=== PATIENT | male | born 1955 | race African-American/Black ===

== ENCOUNTER 2016-10-15 02:29 | Emergency (ER) | payer OTHER, SELFPAY ==
[~2016-10-15] VITALS: Ht 180.3 cm; Wt 118.0 kg
[~2016-10-15 02:29] MED LIST: ASPI325T PO; FERR325T3 PO; MOTR200T44 PO; OXYC1TAB23 PO; PRIL20CA PO; SENO8.6T10 PO; TYLE500T78 PO; VITA500C24 PO
[2016-10-15 02:36] VITALS: BP 164/82
[2016-10-15] MEDS ORDERED: TETRACAINE 0.5% OPHTH SOLN 4ML OS ONE (03:30)
[2016-10-15] MEDS ORDERED: FLUORESCEIN OPHTH 1 MG STRIP OS ONE (04:15)
== END 2016-10-15 04:41 | disposition home or self-care (01) ==
LOC: M ED 02:29
DX: H10.212 Acute toxic conjunctivitis, left eye (principal); T65.91XA Toxic effect of unspecified substance, accidental (unintentional), initial encounter; Y92.9 Unspecified place or not applicable; Y93.9 Activity, unspecified; Y99.0 Civilian activity done for income or pay; F17.200 Nicotine dependence, unspecified, uncomplicated

== ENCOUNTER 2016-12-01 14:08 | Emergency (ER) | payer OTHER, SELFPAY ==
[~2016-12-01] VITALS: Ht 182.9 cm; Wt 120.4 kg
[2016-12-01 17:04] VITALS: BP 157/84
== END 2016-12-01 17:06 | disposition home or self-care (01) ==
LOC: M ED 14:08
DX: N52.9 Male erectile dysfunction, unspecified (principal); F17.200 Nicotine dependence, unspecified, uncomplicated

== ENCOUNTER 2018-01-20 02:08 | Emergency (ER) | payer OTHER, SELFPAY ==
[2018-01-20] MEDS ORDERED: diphenhydrAMINE 50 MG CAP PO (03:15)
== END 2018-01-20 03:29 | disposition home or self-care (01) ==
LOC: M ED 02:08
DX: S92.302A Fracture of unspecified metatarsal bone(s), left foot, initial encounter for closed fracture (principal); Y92.89 Other specified places as the place of occurrence of the external cause; W20.8XXA Other cause of strike by thrown, projected or falling object, initial encounter
CPT/HCPCS: 73630

== ENCOUNTER 2019-02-17 20:26 | Emergency (ER) | payer OTHER ==
[~2019-02-17] VITALS: Ht 180.3 cm; Wt 100.0 kg
[2019-02-17 21:15] LABS: BASO % 0.5 % (0.0-1.0); EOS # 0.2 10^3/uL (0.0-0.5); HEMATOCRIT 46.5 % (42.0-52.0); HEMOGLOBIN 14.1 g/dl (13.5-17.5); LYMPH # 2.3 10^3/uL (1.5-5.0); LYMPH % 37.8 % (24.0-44.0); MEAN CORPUSCULAR HEMOGLOBIN 25.4 pg (27.0-33.0); MEAN CORPUSCULAR HGB CONC 30.3 g/dl (32.0-36.5); MEAN CORPUSCULAR VOLUME 83.8 fl (80.0-96.0); MONO # 0.4 10^3/uL (0.0-0.8); MONO % 6.8 % (0.0-5.0); NEUTROPHILS # 3.1 10^3/uL (1.5-8.5); NEUTROPHILS % 50.7 % (36.0-66.0); PLATELET COUNT, AUTOMATED 229 10^3/uL (150-450); RED BLOOD COUNT 5.55 10^6/uL (4.30-6.10)
[2019-02-17 21:38] LABS: INR 1.02; PARTIAL THROMBOPLASTIN TIME 24.1 SECONDS (25.0-38.4); PROTHROMBIN TIME 13.1 SECONDS (11.8-14.0)
[2019-02-17 22:02] LABS: ALBUMIN 3.3 GM/DL (3.2-5.2); ALT/SGPT 36 U/L (12-78); BILIRUBIN,DIRECT < 0.1 MG/DL (0.0-0.2); BILIRUBIN,TOTAL 0.4 MG/DL (0.2-1.0); BLOOD UREA NITROGEN 15 MG/DL (7-18); CARBON DIOXIDE LEVEL 29 MEQ/L (21-32); CHLORIDE LEVEL 110 MEQ/L (98-107); CREATININE FOR GFR 1.28 MG/DL (0.70-1.30); GLOMERULAR FILTRATION RATE > 60.0 (>49); GLUCOSE, FASTING 98 MG/DL (70-100); POTASSIUM SERUM 4.1 MEQ/L (3.5-5.1); SODIUM LEVEL 145 MEQ/L (136-145); TOTAL PROTEIN 6.6 GM/DL (6.4-8.2)
[2019-02-18] MEDS ORDERED: ISOVUE-370 76% 100ML VIAL (Q9967) As Ordered ONE (00:14)
[2019-02-18] MEDS: ONDANSETRON 4MG/2ML VIAL (J2405) IV ONE ×2 (00:46→00:47)
[2019-02-18 02:05] VITALS: BP 180/88
--- NOTE | 2019-02-18 09:25 | REP ---
Soft-tissue ultrasound left forearm: History: Swelling of the left forearm. Evaluate for vascular injury. The patient reports no known injury or pain and states a lump appear approximately 1 hour prior. Preliminary report is provided at the time of exam by [facility]. Repeat dictation. Findings: There is a homogeneous slightly hyperechoic solid oval-shaped mass within the soft tissues of the left forearm measuring 5.6 x 9.0 x 4.5 cm. There is some internal blood flow. Nonspecific sonographic findings for soft tissue mass. Impression: Intramuscular soft tissue mass. No abnormal fluid collection. The lesion is homogeneous consistent with but not specific for lipoma. Electronically Signed by Boris Cooley MD 02/18/2019 09:16 A
--- NOTE | 2019-02-18 09:25 | REP ---
REPEAT DICTATION CT LEFT FOREARM AND UPPER ARM WITH IV CONTRAST: HISTORY: Further evaluation of forearm mass. Preliminary report is provided at the time of exam by [facility]. CT CONTRAST DOSE: 100 mL of intravenous Isovue 370. Comparison is made with sonographic images from this date. FINDINGS: There is a homogeneous fat density intramuscular mass in the left forearm along its ventral and lateral aspect overlying the radius. This is compatible with a benign lipoma. There are no abnormal soft tissue components or abnormal contrast enhancement changes. The lesion measures 14.0 cm in greatest craniocaudal span x 7.5 cm dorsal to ventral x 3.8 cm medial to lateral. No other soft tissue mass is seen. There is no evidence of denervation myopathy in the distal forearm. No acute bony abnormality is appreciated. 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 Electronically Signed by Boris Cooley MD 02/18/2019 10:37 A
== END 2019-02-18 02:07 | disposition home or self-care (01) ==
LOC: M ED 20:26
DX: S50.12XA Contusion of left forearm, initial encounter (principal); R22.32 Localized swelling, mass and lump, left upper limb; R03.0 Elevated blood-pressure reading, without diagnosis of hypertension; X58.XXXA Exposure to other specified factors, initial encounter; Y92.9 Unspecified place or not applicable; Y93.9 Activity, unspecified; Y99.9 Unspecified external cause status
CPT/HCPCS: 73206; 76882; 80048; 80076; 85025; 85610; 85730; 99284; Q9967

== ENCOUNTER 2019-09-11 19:48 | Emergency (ER) | payer SELFPAY | END 2019-09-11 22:35 | disposition home or self-care (01) | LOC: M ED 19:48 | DX: H26.9 Unspecified cataract (principal); F17.200 Nicotine dependence, unspecified, uncomplicated ==

== ENCOUNTER 2019-12-03 13:54 | Emergency (ER) | payer OTHER, SELFPAY ==
[~2019-12-03] VITALS: Ht 180.3 cm; Wt 117.8 kg
[2019-12-03] MEDS ORDERED: TETRACAINE 0.5% OPHTH SOLN 4ML OD ONE (14:45)
[2019-12-03] MEDS ORDERED: FLUORESCEIN OPHTH 1 MG STRIP OD ONE (14:45)
[2019-12-03] MEDS ORDERED: POLYSOL OP (15:18)
[2019-12-03] MEDS ORDERED: POLYTRIM OPTH DROPS 10ML OD ONE (15:30)
[2019-12-03 16:02] VITALS: BP 169/79
== END 2019-12-03 16:04 | disposition home or self-care (01) ==
LOC: M ED 13:54
DX: H10.31 Unspecified acute conjunctivitis, right eye (principal)

== ENCOUNTER 2022-01-10 12:40 | Emergency (ER) | payer OTHER ==
[~2022-01-10] VITALS: Ht 180.3 cm; Wt 113.6 kg
[~2022-01-10 12:40] MED LIST changes: +POLYSOL OP
[2022-01-10] MEDS ORDERED: ONDANSETRON 4MG 2ML VIAL IV ONE (13:00)
[2022-01-10 13:43] LABS: HEMOGLOBIN 13.6 g/dl (13.5-17.5); MEAN CORPUSCULAR HEMOGLOBIN 24.3 pg (27.0-33.0); MEAN CORPUSCULAR HGB CONC 30.2 g/dl (32.0-36.5); MEAN CORPUSCULAR VOLUME 80.4 fl (80.0-96.0); PLATELET COUNT, AUTOMATED 261 10^3/uL (150-450); WHITE BLOOD COUNT 5.6 10^3/uL (4.0-10.0)
[2022-01-10 13:58] LABS: ALBUMIN 3.5 G/DL (3.2-5.2); ALT/SGPT 41 U/L (7.0-40); BILIRUBIN,DIRECT 0.1 MG/DL (<0.4); BILIRUBIN,TOTAL 0.3 MG/DL (0.3-1.2); BLOOD UREA NITROGEN 15 MG/DL (9-23); CALCIUM LEVEL 8.5 MG/DL (8.3-10.6); CARBON DIOXIDE LEVEL 27 MMOL/L (20-31); CHLORIDE LEVEL 108 MMOL/L (98-107); CREATININE FOR GFR 1.07 MG/DL (0.70-1.30); GLOMERULAR FILTRATION RATE > 60.0 (>49); GLUCOSE, FASTING 93 MG/DL (74-106); LIPASE 26 U/L (12-53); POTASSIUM SERUM 3.9 MMOL/L (3.5-5.1); SODIUM LEVEL 145 MMOL/L (136-145); TOTAL PROTEIN 6.4 G/DL (5.7-8.2)
[2022-01-10 13:59] LABS: ATYPICAL LYMPH 13 % (0-5); EOSINOPHILS 6 % (0-3); LYMPHOCYTES 26 % (16-44); MONOCYTES 8 % (0-5); NEUTROPHILS 47 % (28-66); PLATELET ESTIMATE NORMAL (NORMAL)
[2022-01-10] MEDS ORDERED: ISOVUE-370 76% 100ML VIAL As Ordered ONE (14:08)
[2022-01-10] MEDS ORDERED: ONDA4TAB6 PO (15:14)
[2022-01-10 15:40] VITALS: BP 168/89
== END 2022-01-10 15:41 | disposition home or self-care (01) ==
LOC: M ED 12:40
DX: R19.00 Intra-abdominal and pelvic swelling, mass and lump, unspecified site (principal); A08.11 Acute gastroenteropathy due to Norwalk agent; I45.10 Unspecified right bundle-branch block; F17.200 Nicotine dependence, unspecified, uncomplicated; Z79.899 Other long term (current) drug therapy

== ENCOUNTER → 2022-01-13 | Outpatient (CLI) | payer OTHER ==
[~2022-01-13] MED LIST changes: +ONDA4TAB6 PO
[2022-01-13 19:29] LABS: CHOLESTEROL RISK RATIO 5.94 (<5); HDL CHOLESTEROL 29.6 MG/DL (>40); LDL CHOLESTEROL 125.8 MG/DL (<100)
[2022-01-13 20:05] LABS: HEPATITIS C VIRUS ABY INDEX 0.2 INDEX (<0.8)
[2022-01-13 22:57] LABS: HEMOGLOBIN A1c 5.6 % (4.0-6.0)
== END ==
LOC: M PLALAB 16:03
PROVIDERS: ATTEND Family Medicine
DX: E66.01 Morbid (severe) obesity due to excess calories (principal)

== ENCOUNTER → 2022-01-21 | Outpatient (CLI) | payer OTHER | LOC: M RAD 12:05 | PROVIDERS: ATTEND Family Medicine | DX: R22.32 Localized swelling, mass and lump, left upper limb (principal) ==

== ENCOUNTER → 2022-07-05 | Outpatient (CLI) | payer OTHER ==
[2022-07-05 11:23] LABS: BLOOD UREA NITROGEN 15 MG/DL (9-23); CALCIUM LEVEL 8.2 MG/DL (8.3-10.6); CARBON DIOXIDE LEVEL 27 MMOL/L (20-31); CHLORIDE LEVEL 109 MMOL/L (98-107); CREATININE FOR GFR 1.03 MG/DL (0.70-1.30); GLOMERULAR FILTRATION RATE > 60.0 (>49); GLUCOSE, FASTING 96 MG/DL (74-106); POTASSIUM SERUM 4.2 MMOL/L (3.5-5.1); SODIUM LEVEL 142 MMOL/L (136-145)
== END ==
LOC: M PLALAB 07:32
PROVIDERS: ATTEND Family Medicine
DX: I10 Essential (primary) hypertension (principal)

== ENCOUNTER 2022-08-06 07:25 | Emergency (ER) | payer OTHER ==
[~2022-08-06] VITALS: Ht 180.3 cm; Wt 123.2 kg
[2022-08-06] MEDS ORDERED: ONDANSETRON 4MG 2ML VIAL IV ONE (08:00)
[2022-08-06] MEDS ORDERED: MORPHINE 4 MG/ML 1ML VIAL IV ONE (08:00)
[2022-08-06 08:25] LABS: BASO % 0.5 % (0.0-1.0); EOS # 0.1 10^3/uL (0.0-0.5); EOS % 1.8 % (0.0-3.0); HEMATOCRIT 44.1 % (42.0-52.0); HEMOGLOBIN 13.8 g/dl (13.5-17.5); LYMPH # 2.8 10^3/uL (1.5-5.0); LYMPH % 36.7 % (24.0-44.0); MEAN CORPUSCULAR HEMOGLOBIN 25.3 pg (27.0-33.0); MEAN CORPUSCULAR HGB CONC 31.3 g/dl (32.0-36.5); MEAN CORPUSCULAR VOLUME 80.8 fl (80.0-96.0); MONO # 0.4 10^3/uL (0.0-0.8); MONO % 4.9 % (2.0-8.0); NEUTROPHILS # 4.2 10^3/uL (1.5-8.5); NEUTROPHILS % 55.8 % (36.0-66.0); PLATELET COUNT, AUTOMATED 248 10^3/uL (150-450); RED BLOOD COUNT 5.46 10^6/uL (4.30-6.10); WHITE BLOOD COUNT 7.6 10^3/uL (4.0-10.0)
[2022-08-06] MEDS ORDERED: ISOVUE-370 76% 100ML VIAL As Ordered ONE (08:33)
[2022-08-06 08:50] LABS: ALBUMIN 3.4 G/DL (3.2-5.2); BILIRUBIN,DIRECT 0.1 MG/DL (<0.4); BILIRUBIN,TOTAL 0.3 MG/DL (0.3-1.2); TOTAL PROTEIN 6.1 G/DL (5.7-8.2)
[2022-08-06] MEDS ORDERED: DICYCLOMINE 10 MG CAP PO ONE (10:40)
[2022-08-06] MEDS ORDERED: NS 1,000 ML IV ONE (10:40)
[2022-08-06] MEDS ORDERED: DICY10CA13 PO (11:21)
[2022-08-06] MEDS ORDERED: ONDA4TAB6 PO (11:21)
[2022-08-06 12:19] VITALS: BP 163/79; TEMP 97.8; O2SAT 96
== END 2022-08-06 12:24 | disposition home or self-care (01) ==
LOC: M ED 07:25
DX: R10.9 Unspecified abdominal pain (principal); A04.8 Other specified bacterial intestinal infections; F17.200 Nicotine dependence, unspecified, uncomplicated
CPT/HCPCS: 74177; 80047; 80076; 83690; 85025; 87507; 96361; 96374; 99284; J2405; Q9967

== ENCOUNTER → 2023-02-11 | Outpatient (REF) | payer MEDICARE ==
[~2023-02-11] MED LIST changes: +DICY-61 PO
[2023-02-12 15:58] LABS: CLOSTRIDIUM DIFFICILE PCR NEGATIVE (NEGATIVE)
== END ==
LOC: M LAB REF 12:30
PROVIDERS: ATTEND Colon & Rectal Surgery
DX: C7A.8 Other malignant neuroendocrine tumors (principal); R19.7 Diarrhea, unspecified

== ENCOUNTER → 2023-05-03 | Outpatient (CLI) | payer MEDICARE ==
[~2023-05-03] MED LIST changes: +GASTROGRAFIN SOLUTION 30ML As Ordered ONE; +IBUP200C33 PO; +ISOVUE-370 76% 100ML VIAL As Ordered ONE
== END ==
LOC: M RAD 08:15
PROVIDERS: ATTEND Internal Medicine Hematology & Oncology
DX: D3A.012 Benign carcinoid tumor of the ileum (principal)
CPT/HCPCS: 71260; 74177; Q9963; Q9967

== ENCOUNTER 2023-08-12 13:17 | Emergency (ER) | payer MEDICARE ==
[~2023-08-12] VITALS: Ht 180.3 cm; Wt 90.7 kg
[~2023-08-12 13:17] MED LIST changes: -GASTROGRAFIN SOLUTION 30ML As Ordered ONE; -ISOVUE-370 76% 100ML VIAL As Ordered ONE; +ONDA-282 PO; -ONDA4TAB6 PO
[2023-08-12 14:35] LABS: HEMATOCRIT 42.4 % (42.0-52.0); HEMOGLOBIN 13.3 g/dl (13.5-17.5); MEAN CORPUSCULAR HEMOGLOBIN 26.5 pg (27.0-33.0); MEAN CORPUSCULAR HGB CONC 31.4 g/dl (32.0-36.5); MEAN CORPUSCULAR VOLUME 84.5 fl (80.0-96.0); PLATELET COUNT, AUTOMATED 244 10^3/uL (150-450); RED BLOOD COUNT 5.02 10^6/uL (4.30-6.10)
[2023-08-12 15:06] LABS: LIPASE 29 U/L (12-53)
[2023-08-12 15:09] LABS: ALBUMIN 3.3 G/DL (3.2-5.2); ALKALINE PHOSPHATASE 99 U/L (46-116); ALT/SGPT 30 U/L (7.0-40); AST/SGOT 14 U/L (<34); BILIRUBIN,DIRECT 0.1 MG/DL (<0.4); BILIRUBIN,TOTAL 0.3 MG/DL (0.3-1.2); BLOOD UREA NITROGEN 13 MG/DL (9-23); CALCIUM LEVEL 8.4 MG/DL (8.3-10.6); CARBON DIOXIDE LEVEL 24 MMOL/L (20-31); CHLORIDE LEVEL 114 MMOL/L (98-107); GLOMERULAR FILTRATION RATE > 60.0 (>49); GLUCOSE, FASTING 87 MG/DL (74-106); POTASSIUM SERUM 4.2 MMOL/L (3.5-5.1); SODIUM LEVEL 145 MMOL/L (136-145); TOTAL PROTEIN 6.1 G/DL (5.7-8.2)
[2023-08-12 15:10] LABS: BASO % 0.6 % (0.0-1.0); EOS # 0.2 10^3/uL (0.0-0.5)
[2023-08-12 15:11] LABS: EOS % 2.9 % (0.0-3.0); LYMPH % 47.3 % (24.0-44.0); MONO % 4.9 % (2.0-8.0)
[2023-08-12 15:12] LABS: LYMPH # 3.3 10^3/uL (1.5-5.0); MONO # 0.3 10^3/uL (0.0-0.8); NEUTROPHILS # 3.1 10^3/uL (1.5-8.5)
[2023-08-12] MEDS: NS 1,000 ML IV ONE (15:17)
[2023-08-12] MEDS: ONDANSETRON 4MG 2ML VIAL IV ONE (15:17)
[2023-08-12] MEDS: KETOROLAC 30 MG/ML 1ML VIAL IV ONE (15:42)
[2023-08-12] MEDS ORDERED: ISOVUE-370 76% 100ML VIAL As Ordered ONE (15:49)
[2023-08-12] MEDS ORDERED: ONDA-282 PO (17:17)
[2023-08-12] MEDS ORDERED: PEPC1TAB5 PO (17:17)
[2023-08-12 17:33] VITALS: BP 139/65; TEMP 97.5; O2SAT 99
[2023-08-19] MEDS ORDERED: AMOX875T PO (10:47)
== END 2023-08-12 17:36 | disposition home or self-care (01) ==
LOC: M ED 13:17
DX: K52.9 Noninfective gastroenteritis and colitis, unspecified (principal); F17.200 Nicotine dependence, unspecified, uncomplicated; C18.9 Malignant neoplasm of colon, unspecified; Z90.89 Acquired absence of other organs; Z79.899 Other long term (current) drug therapy; Z79.83 Long term (current) use of bisphosphonates
CPT/HCPCS: 74177; 80048; 80076; 81001; 83690; 85025; 87088; 87186; 96361; 96374; 96375; 99284; J1885; J2405; Q9967

== ENCOUNTER → 2023-08-24 | Outpatient (CLI) | payer MEDICARE ==
[~2023-08-24] MED LIST changes: +AMOX875T PO; +GASTROGRAFIN SOLUTION 30ML As Ordered ONE; +ISOVUE-370 76% 100ML VIAL As Ordered ONE; +PEPC1TAB5 PO; +PRED20TA PO; +SFHHYD1CR TOP
== END ==
LOC: M RAD 14:53
PROVIDERS: ATTEND Internal Medicine Hematology & Oncology
DX: C7A.00 Malignant carcinoid tumor of unspecified site (principal)
CPT/HCPCS: 71260; 74177; Q9963; Q9967

== ENCOUNTER 2023-10-02 10:49 | Emergency (ER) | payer MEDICARE ==
[~2023-10-02] VITALS: Ht 180.3 cm; Wt 90.5 kg
[~2023-10-02 10:49] MED LIST changes: -GASTROGRAFIN SOLUTION 30ML As Ordered ONE; -ISOVUE-370 76% 100ML VIAL As Ordered ONE; -PRED20TA PO; -SFHHYD1CR TOP
[2023-10-02] MEDS: diphenhydrAMINE 25MG CAP PO ONE (13:06)
[2023-10-02] MEDS: predniSONE 20 MG TAB PO ONE (13:06)
[2023-10-02 14:09] VITALS: BP 146/72; TEMP 97.3; O2SAT 100
[2023-10-02] MEDS ORDERED: SFHHYD1CR TOP (14:20)
== END 2023-10-02 14:27 | disposition home or self-care (01) ==
LOC: M ED 10:49
DX: L50.9 Urticaria, unspecified (principal); F17.200 Nicotine dependence, unspecified, uncomplicated; Z79.2 Long term (current) use of antibiotics; Z79.83 Long term (current) use of bisphosphonates; Z79.899 Other long term (current) drug therapy
CPT/HCPCS: 99283; J7512

== ENCOUNTER 2023-10-06 00:05 | Emergency (ER) | payer MEDICARE, OTHER ==
[~2023-10-06] VITALS: Ht 182.9 cm; Wt 93.2 kg
[~2023-10-06 00:05] MED LIST changes: +SFHHYD1CR TOP
[2023-10-06 00:06] VITALS: TEMP 97.4
[2023-10-06] MEDS: FAMOTIDINE 20MG/2ML VIAL IVP ONE (00:58)
[2023-10-06] MEDS: diphenhydrAMINE 50MG/ML VIAL IV ONE (00:58)
[2023-10-06] MEDS: NS 1,000 ML IV ONE (00:58)
[2023-10-06] MEDS: methylPREDNISolone 125MG 2ML VIAL IV ONE (00:58)
[2023-10-06] MEDS ORDERED: PEPC1TAB5 PO (03:09)
[2023-10-06] MEDS ORDERED: PRED20TA PO (03:09)
[2023-10-06 05:15] VITALS: BP 151/76; O2SAT 97
== END 2023-10-06 05:49 | disposition home or self-care (01) ==
LOC: M ED 00:05
DX: T78.40XA Allergy, unspecified, initial encounter (principal); K14.8 Other diseases of tongue; Z79.2 Long term (current) use of antibiotics; Z79.52 Long term (current) use of systemic steroids; Z79.83 Long term (current) use of bisphosphonates; Z79.899 Other long term (current) drug therapy
CPT/HCPCS: 93041; 94760; 96361; 96374; 99285; J1200; J2919; S0028

== ENCOUNTER 2023-11-22 08:14 | Emergency (ER) | payer MEDICARE ==
[~2023-11-22] VITALS: Ht 182.9 cm; Wt 90.8 kg
[~2023-11-22 08:14] MED LIST changes: +PRED20TA PO
[2023-11-22] MEDS: EPINEPHrine INJ 1 MG/ML 1ML AMP IM STA (10:02)
[2023-11-22] MEDS: diphenhydrAMINE 50MG/ML VIAL IV ONE (10:03)
[2023-11-22] MEDS: FAMOTIDINE IV BAG 20 MG in IV 1 EA IV ONE (10:03)
[2023-11-22] MEDS: methylPREDNISolone 125MG 2ML VIAL IV ONE (10:03)
[2023-11-22 10:20] LABS: BASO % 0.1 % (0.0-1.0); EOS # 0.1 10^3/uL (0.0-0.5); HEMATOCRIT 39.9 % (42.0-52.0); HEMOGLOBIN 12.6 g/dl (13.5-17.5); LYMPH % 52.6 % (24.0-44.0); MEAN CORPUSCULAR HEMOGLOBIN 26.6 pg (27.0-33.0); MEAN CORPUSCULAR HGB CONC 31.6 g/dl (32.0-36.5); MEAN CORPUSCULAR VOLUME 84.4 fl (80.0-96.0); MONO # 0.6 10^3/uL (0.0-0.8); MONO % 8.3 % (2.0-8.0); NEUTROPHILS # 2.9 10^3/uL (1.5-8.5); NEUTROPHILS % 37.9 % (36.0-66.0); PLATELET COUNT, AUTOMATED 249 10^3/uL (150-450); RED BLOOD COUNT 4.73 10^6/uL (4.30-6.10); WHITE BLOOD COUNT 7.6 10^3/uL (4.0-10.0)
[2023-11-22 10:28] LABS: ERYTHROCYTE SEDIMENTATION RATE 6 mm/hr (0-20)
[2023-11-22 10:39] LABS: C REACTIVE PROTEIN QUANTITATIV < 0.40 MG/DL (<1.0)
[2023-11-22 10:40] LABS: COMPLEMENT C4 18.6 MG/DL (12-36)
[2023-11-22 10:50] LABS: BLOOD UREA NITROGEN 15 MG/DL (9-23); CALCIUM LEVEL 7.9 MG/DL (8.3-10.6); CARBON DIOXIDE LEVEL 23 MMOL/L (20-31); CHLORIDE LEVEL 112 MMOL/L (98-107); CREATININE FOR GFR 1.07 MG/DL (0.70-1.30); GLOMERULAR FILTRATION RATE > 60.0 (>49); GLUCOSE, FASTING 82 MG/DL (74-106); POTASSIUM SERUM 5.6 MMOL/L (3.5-5.1); SODIUM LEVEL 138 MMOL/L (136-145)
[2023-11-22] MEDS ORDERED: CETI10CH PO (13:38)
[2023-11-22] MEDS ORDERED: EPIP0.3I2 IM (13:40)
[2023-11-22 14:09] VITALS: BP 162/82; TEMP 97.8; O2SAT 99
[2023-11-25 15:06] LABS: C1 ESTER INHIB. NON FUNCTIONAL 30 mg/dL (21-39)
== END 2023-11-22 14:38 | disposition home or self-care (01) ==
LOC: M ED 08:14
DX: L50.9 Urticaria, unspecified (principal); K14.0 Glossitis; F17.200 Nicotine dependence, unspecified, uncomplicated; F10.10 Alcohol abuse, uncomplicated; Z79.899 Other long term (current) drug therapy
CPT/HCPCS: 80048; 83519; 85025; 85652; 86140; 86160; 86161; 96365; 96372; 96375; 99284; J0171; J1200; J2919

== ENCOUNTER 2024-05-19 07:34 | Inpatient (IN) | payer MEDICARE, OTHER ==
[~2024-05-19] VITALS: Ht 182.9 cm; Wt 82.5 kg
[~2024-05-19 07:34] MED LIST changes: +CETI10CH PO; +EPIP0.3I2 IM
[2024-05-19] MEDS: IPRATROPIUM 0.5MG/ALBUTEROL 2.5MG INH SOL UD 3ML NEB ONE (10:25)
[2024-05-19] MEDS: methylPREDNISolone 125MG 2ML VIAL IV ONE (10:25)
[2024-05-19] MEDS: ACETAMINOPHEN 500 MG TAB PO ONE (10:25)
[2024-05-19 10:32] LABS: BASO % 0.2 % (0.0-1.0); EOS % 0.2 % (0.0-3.0); HEMATOCRIT 38.2 % (42.0-52.0); HEMOGLOBIN 12.7 g/dl (13.5-17.5); LYMPH # 2.5 10^3/uL (1.5-5.0); LYMPH % 13.6 % (24.0-44.0); MEAN CORPUSCULAR HGB CONC 33.2 g/dl (32.0-36.5); MEAN CORPUSCULAR VOLUME 81.1 fl (80.0-96.0); MONO # 0.8 10^3/uL (0.0-0.8); MONO % 4.4 % (2.0-8.0); NEUTROPHILS # 15.2 10^3/uL (1.5-8.5); NEUTROPHILS % 81.1 % (36.0-66.0); PLATELET COUNT, AUTOMATED 356 10^3/uL (150-450); RED BLOOD COUNT 4.71 10^6/uL (4.30-6.10); WHITE BLOOD COUNT 18.7 10^3/uL (4.0-10.0)
[2024-05-19 10:51] LABS: ERYTHROCYTE SEDIMENTATION RATE 75 mm/hr (0-20)
[2024-05-19 10:58] LABS: BLOOD UREA NITROGEN 25 MG/DL (9-23); C REACTIVE PROTEIN QUANTITATIV 5.45 MG/DL (<1.0); CALCIUM LEVEL 7.9 MG/DL (8.3-10.6); CARBON DIOXIDE LEVEL 19 MMOL/L (20-31); CHLORIDE LEVEL 107 MMOL/L (98-107); CK-MB VALUE MASS < 1.0 NG/ML (<3.6); CPK CREATINE PHOSPHOKINASE 92 U/L (46-171); CREATININE FOR GFR 1.48 MG/DL (0.70-1.30); GLOMERULAR FILTRATION RATE 51.9 (>49); GLUCOSE, FASTING 101 MG/DL (74-106); MB/CK RELATIVE INDEX 1.08 (< OR =4); POTASSIUM SERUM 4.3 MMOL/L (3.5-5.1); SODIUM LEVEL 135 MMOL/L (136-145)
[2024-05-19] MEDS ORDERED: ISOVUE-370 76% 100ML VIAL As Ordered ONE (11:12)
[2024-05-19 11:20] LABS: VENOUS BASE EXCESS -8.2 (-2.0-2.0); VENOUS HCO3 17.6 MMOL/L (23.0-27.0); VENOUS O2 SATURATION 85.9 % (60.0-80.0); VENOUS PARTIAL PRESSURE CO2 37.1 mmHg (38.0-50.0); VENOUS PARTIAL PRESSURE O2 52.8 mmHg (30.0-50.0); VENOUS PH 7.294 UNITS (7.330-7.430); VENOUS STANDARD HCO3 17.7 MMOL/L; VENOUS TOTAL CO2 18.7 MMOL/L (24.0-28.0)
[2024-05-19 11:42] VITALS: O2SAT 96
[2024-05-19] MEDS ORDERED: DOXYCYCLINE HYCLATE 100 MG in DEXTROSE 5% (D5W) MINI-BAG PLU 100 ML IV SCH (12:40)
[2024-05-19] MEDS ORDERED: IPRATROPIUM 0.5MG/ALBUTEROL 2.5MG INH SOL UD 3ML NEB PRN (12:40)
[2024-05-19] MEDS: LR 1,000 ML IV ONE ×2 (12:50→19:14)
[2024-05-19] MEDS: DOXYCYCLINE HYCLATE 100MG TABLET PO SCH (12:59)
[2024-05-19] MEDS ORDERED: EPIN0.3I11 INJ (13:37)
[2024-05-19] MEDS ORDERED: HOME MED LIST COMPLETE! XX SCH (13:40)
[2024-05-19] MEDS ORDERED: NICOTINE POLACRILEX 2 MG GUM PO PRN (14:30)
[2024-05-19] MEDS: cefTRIAXone SOD 2 GM in DEXTROSE 5% (D5W) ADV/MINI-BAG 50 ML IV SCH (14:32)
[2024-05-19 15:17] LABS: HIV 1&2 SCREEN NEGATIVE (NEGATIVE)
[2024-05-19] MEDS: NICOTINE 14 MG/24 HR TRANSDERMAL TD SCH (16:01)
[2024-05-19] MEDS: IPRATROPIUM 0.5MG/ALBUTEROL 2.5MG INH SOL UD 3ML NEB SCH (16:26)
[2024-05-19 17:50] VITALS: BP 120/56; TEMP 97.2; O2SAT 98
[2024-05-19] MEDS ORDERED: ACETAMINOPHEN 325 MG TAB PO PRN (18:50)
[2024-05-19 19:50] LABS: CREATININE FOR GFR 1.37 MG/DL (0.70-1.30); GLOMERULAR FILTRATION RATE 56.9 (>49); POTASSIUM SERUM 4.3 MMOL/L (3.5-5.1)
[2024-05-19 19:52] LABS: PERCENT SATURATION 13.6 % (19.7-50.0)
[2024-05-19 19:54] LABS: FERRITIN 236.7 NG/ML (10.5-307.3)
[2024-05-19 19:56] VITALS: BP 125/58; TEMP 97.5; O2SAT 99
[2024-05-20 04:19] VITALS: BP 130/74; TEMP 97.3; O2SAT 99
[2024-05-20 06:26] LABS: BASO % 0.1 % (0.0-1.0); HEMATOCRIT 34.9 % (42.0-52.0); HEMOGLOBIN 11.3 g/dl (13.5-17.5); LYMPH # 3.5 10^3/uL (1.5-5.0); LYMPH % 21.2 % (24.0-44.0); MEAN CORPUSCULAR HEMOGLOBIN 26.5 pg (27.0-33.0); MEAN CORPUSCULAR HGB CONC 32.4 g/dl (32.0-36.5); MEAN CORPUSCULAR VOLUME 81.9 fl (80.0-96.0); MONO # 0.6 10^3/uL (0.0-0.8); MONO % 3.9 % (2.0-8.0); NEUTROPHILS # 12.1 10^3/uL (1.5-8.5); NEUTROPHILS % 74.3 % (36.0-66.0); PLATELET COUNT, AUTOMATED 343 10^3/uL (150-450); RED BLOOD COUNT 4.26 10^6/uL (4.30-6.10); WHITE BLOOD COUNT 16.3 10^3/uL (4.0-10.0)
[2024-05-20 06:46] LABS: BLOOD UREA NITROGEN 26 MG/DL (9-23); CALCIUM LEVEL 7.8 MG/DL (8.3-10.6); CARBON DIOXIDE LEVEL 19 MMOL/L (20-31); CHLORIDE LEVEL 110 MMOL/L (98-107); CHOLESTEROL LEVEL 80 MG/DL (<200); CHOLESTEROL RISK RATIO 3.43 (<5); CREATININE FOR GFR 1.18 MG/DL (0.70-1.30); GLOMERULAR FILTRATION RATE > 60.0 (>49); GLUCOSE, FASTING 113 MG/DL (74-106); HDL CHOLESTEROL 23.3 MG/DL (>40); LDL CHOLESTEROL 46.5 MG/DL (<100); NON-HDL-C 56.7 MG/DL; POTASSIUM SERUM 4.2 MMOL/L (3.5-5.1); SODIUM LEVEL 140 MMOL/L (136-145); TRIGLYCERIDES LEVEL 51 MG/DL (<150)
[2024-05-20 06:49] LABS: THYROID STIMULATING HORMONE 0.113 uIU/ML (0.55-4.78)
[2024-05-20] MEDS: MONTELUKAST 10 MG TAB PO SCH (07:54)
[2024-05-20] MEDS: guaiFENesin ER TABLET 600 MG TAB PO SCH (07:54)
[2024-05-20] MEDS: LACTOBACILLUS ACIDOPHILUS CAP (BACID) PO SCH (07:54)
[2024-05-20] MEDS: CETIRIZINE (ZyrTEC) 10 MG TAB PO SCH (07:54)
[2024-05-20] MEDS: TIOTROPIUM BROM 2.5MCG/ACTUATION 4GM INH IH SCH (08:22)
[2024-05-20 09:50] LABS: FREE T4 1.22 NG/DL (0.89-1.76)
[2024-05-20] MEDS: SODIUM BICARBONATE 325 MG TAB PO ONE (10:37)
[2024-05-20] MEDS: SODIUM BICARBONATE 150 MEQ in D5W 1,000 ML IV SCH (10:37)
[2024-05-20 12:16] VITALS: BP 133/65; TEMP 97; O2SAT 99
[2024-05-20 20:44] VITALS: BP 137/67; TEMP 97.2; O2SAT 99
[2024-05-21 03:58] VITALS: BP 136/64; TEMP 97.5; O2SAT 98
[2024-05-21 07:14] LABS: HEMATOCRIT 35.4 % (42.0-52.0); HEMOGLOBIN 11.3 g/dl (13.5-17.5); MEAN CORPUSCULAR HGB CONC 31.9 g/dl (32.0-36.5); MEAN CORPUSCULAR VOLUME 84.7 fl (80.0-96.0); PLATELET COUNT, AUTOMATED 328 10^3/uL (150-450); RED BLOOD COUNT 4.18 10^6/uL (4.30-6.10); WHITE BLOOD COUNT 10.2 10^3/uL (4.0-10.0)
[2024-05-21 07:31] LABS: BLOOD UREA NITROGEN 22 MG/DL (9-23); CALCIUM LEVEL 7.5 MG/DL (8.3-10.6); CARBON DIOXIDE LEVEL 21 MMOL/L (20-31); CHLORIDE LEVEL 116 MMOL/L (98-107); CREATININE FOR GFR 1.19 MG/DL (0.70-1.30); GLOMERULAR FILTRATION RATE > 60.0 (>49); GLUCOSE, FASTING 90 MG/DL (74-106); POTASSIUM SERUM 4.2 MMOL/L (3.5-5.1); SODIUM LEVEL 146 MMOL/L (136-145)
[2024-05-21] MEDS ORDERED: CEFEPIME HCL 2 GM in DEXTROSE 5% (D5W) ADV/MINI-BAG 50 ML IV SCH (08:00)
[2024-05-21 08:15] LABS: ATYPICAL LYMPH 18 % (0-5); BASOPHILS 1 % (0-1); LYMPHOCYTES 30 % (16-44); MONOCYTES 4 % (0-5); NEUTROPHILS 47 % (28-66)
[2024-05-21 08:16] LABS: OVALOCYTES 1+; PLATELET ESTIMATE NORMAL (NORMAL)
[2024-05-21] MEDS: LevoFLOXacin 750 MG TABLET PO SCH (08:27)
[2024-05-21 13:40] VITALS: BP 121/59; TEMP 97.3; O2SAT 98
[2024-05-21] MEDS: SODIUM BICARBONATE 325 MG TAB PO SCH (17:11)
[2024-05-21] MEDS: SODIUM BICARBONATE 150 MEQ in D5W 1,000 ML IV SCH (17:11)
[2024-05-21 19:50] VITALS: BP 108/53; TEMP 97.7; O2SAT 96
[2024-05-22 04:20] VITALS: BP 121/74; TEMP 98.1; O2SAT 99
[2024-05-22 07:43] LABS: BASO # 0.1 10^3/uL (0.0-0.2); BASO % 0.6 % (0.0-1.0); EOS # 0.2 10^3/uL (0.0-0.5); EOS % 2.3 % (0.0-3.0); HEMATOCRIT 35.8 % (42.0-52.0); HEMOGLOBIN 11.1 g/dl (13.5-17.5); LYMPH # 3.7 10^3/uL (1.5-5.0); LYMPH % 42.5 % (24.0-44.0); MEAN CORPUSCULAR HEMOGLOBIN 26.5 pg (27.0-33.0); MEAN CORPUSCULAR VOLUME 85.4 fl (80.0-96.0); MONO # 0.5 10^3/uL (0.0-0.8); MONO % 6.2 % (2.0-8.0); NEUTROPHILS # 4.2 10^3/uL (1.5-8.5); NEUTROPHILS % 48.2 % (36.0-66.0); PLATELET COUNT, AUTOMATED 355 10^3/uL (150-450); RED BLOOD COUNT 4.19 10^6/uL (4.30-6.10); WHITE BLOOD COUNT 8.7 10^3/uL (4.0-10.0)
[2024-05-22 07:49] LABS: BLOOD UREA NITROGEN 19 MG/DL (9-23); CALCIUM LEVEL 7.7 MG/DL (8.3-10.6); CARBON DIOXIDE LEVEL 24 MMOL/L (20-31); CHLORIDE LEVEL 114 MMOL/L (98-107); CREATININE FOR GFR 1.22 MG/DL (0.70-1.30); GLOMERULAR FILTRATION RATE > 60.0 (>49); GLUCOSE, FASTING 87 MG/DL (74-106); POTASSIUM SERUM 4.1 MMOL/L (3.5-5.1); SODIUM LEVEL 146 MMOL/L (136-145)
[2024-05-22 12:00] VITALS: BP 111/57; TEMP 97.5; O2SAT 97
[2024-05-22] MEDS ORDERED: LEVO75TAB PO (13:43)
[2024-05-22] MEDS ORDERED: CETI10TA PO (13:43)
[2024-05-22] MEDS ORDERED: MUCI600T31 PO (13:43)
[2024-05-22] MEDS ORDERED: ACET32TAB PO (13:43)
[2024-05-22] MEDS ORDERED: MONT10TA97 PO (13:43)
[2024-05-23 18:42] LABS: URINE STREP PNEUMONIAE ANTIGEN NOT DETECTED (NOT DETECT)
== END 2024-05-22 14:10 | disposition home or self-care (01) | DRG 178 ==
LOC: M ED 07:34 → M ED INP 12:36 → M MS5PR 17:35
PROVIDERS: ADMIT General Practice; ATTEND Student in an Organized Health Care Education/Training Program
DX: J15.0 Pneumonia due to Klebsiella pneumoniae (principal); E87.1 Hypo-osmolality and hyponatremia; N17.9 Acute kidney failure, unspecified; C17.2 Malignant neoplasm of ileum; E87.21 Acute metabolic acidosis; I10 Essential (primary) hypertension; D64.9 Anemia, unspecified; F17.210 Nicotine dependence, cigarettes, uncomplicated; R22.32 Localized swelling, mass and lump, left upper limb; Z79.899 Other long term (current) drug therapy

== ENCOUNTER → 2024-06-04 | Outpatient (CLI) | payer MEDICARE ==
[~2024-06-04] MED LIST changes: +ACET32TAB PO; +CETI10TA PO; +EPIN0.3I11 INJ; +ISOVUE-370 76% 100ML VIAL As Ordered ONE; +LEVO75TAB PO; +MONT10TA97 PO; +MUCI600T31 PO
== END ==
LOC: M RAD 13:16
PROVIDERS: ATTEND Nurse Practitioner Family
DX: C7A.8 Other malignant neuroendocrine tumors (principal)
CPT/HCPCS: 74177; Q9967